=== PATIENT | male | born 1950 | race Caucasian/White ===

== ENCOUNTER 2018-04-11 13:44 | Emergency (ER) | payer OTHER ==
--- NOTE | 2018-04-11 14:41 | PDOC ---
Attending Attestation - Resident Resident Name: Melisa Betancur - ED Attending Attestation I have performed the following: I have examined & evaluated the patient, The case was reviewed & discussed with the resident, I agree w/resident's findings & plan, Exceptions are as noted - Physicial Exam PE: 04/11/18 16:54 Patient is awake and alert, well-appearing, in no distress; patient is initially hypotensive Normocephalic and atraumatic PERRLA, EOMI cta rrr Abdomen is soft, nontender, nondistended, bowel sounds are normal and present in all 4 quadrants - Medical Decision Making 04/11/18 16:55 Patient 67-year-old male with multiple comorbidities who presents with several episodes of loose watery stools intermixed with formed stools. On initial evaluation patient hypotensive. Serial abdominal exams reveal no focal tenderness. Will hydrate. Will check CBC/CMP. We'll administer by mouth challenge and will reassess. <Kareem Henao - Last Filed: 04/11/18 16:53> - HPI HPI: This patient is a 67 year old male with PMHx of, DM, HTN, HLD, CAD s/p CABG, BPD , BPH, C diff 2 year ago , IBS, COPD, Atopic dermatitis PSurgHx:3 right knee, replacement, who presents with diarrhea since last night as well as dizziness today. Patient reports about 5 ep. Of loose stools, with some solid pieces yesterday. He reports 5 ep.of diarrhea this morning. He also reports decrease in appetite since diarrheal episodes, but is currently hungry. He reports dizziness/lightheadedness a few hours ago lasting a few mins. Patient denies abdominal pain, nausea/vomiting, fever/chills. Denies headache, changes in vision, chest pain, SOB, palpitations, urinary symptoms. Social Hx: lives in assisted living <Torie Arboleda - Last Filed: 04/11/18 17:01>
[2018-04-11] MEDS ORDERED: SODIUM CHLORIDE 1,000 ML IV STA (14:59)
--- NOTE | 2018-04-11 15:00 | PDOC ---
History of Present Illness - General Chief Complaint: Diarrhea Stated Complaint: Diarrhea Time Seen by Provider: 04/11/18 14:11 - History of Present Illness Initial Comments: 04/11/18 15:28 Patient is a 67 year old male with past medical history of DM, HTN, HLD, CAD s/ p CABG, Bipolar d/o, COPD, BPH, IBS with diarrhea, Atopic dermatitis, presented with multiple episodes of loose watery stools that started yesterday. Patient reported having 5 episodes of non-bloody loose watery stools last night and 5 more episodes today. A few hours ago, patient experienced dizziness/ lightheadedness, lasting a few minutes. Patient has not had any meal since the diarrheal episodes started, but feels hungry now. Patient denies abdominal pain , nausea/vomiting, fever/chills. Denies headache, changes in vision, chest pain , SOB, palpitations, urinary symptoms. Past History - Travel Traveled outside of the country in the last 30 days: No Close contact w/someone who was outside of country & ill: No - Past Medical History Allergies/Adverse Reactions: Allergies Allergy/AdvReac Type Severity Reaction Status Date / Time No Known Allergies Allergy Verified 04/11/18 16:56 Home Medications: Ambulatory Orders Albuterol Sulfate [Proair Hfa] 1 - 2 puff IH PRN 04/11/18 Aspirin [ASA -] 81 mg PO DAILY 04/11/18 Clopidogrel Bisulfate [Plavix] 75 mg PO DAILY 04/11/18 Cyanocobalamin [Vitamin B12 -] 1,000 mcg PO DAILY 04/11/18 Divalproex *ER* [Depakote *ER* -] 500 mg PO BID 04/11/18 Divalproex Sodium [Depakote] 250 mg PO HS 04/11/18 Famotidine [Pepcid] 20 mg PO DAILY 04/11/18 Folic Acid 1 mg PO DAILY 04/11/18 Gabapentin [Neurontin] 300 mg PO TID 04/11/18 Insulin Glargine,Hum.rec.anlog [Lantus Solostar] 40 unit SQ DAILY 04/11/18 Insulin Lispro [Humalog] 0 unit SQ ASDIR 04/11/18 Ketorolac 0.5% Eye Drop 1 drop OS DAILY 04/11/18 Lactobacillus Acidophilus [Acidophilus] 1 each PO DAILY 04/11/18 Magnesium Chloride [Mag64] 64 mg PO HS 04/11/18 Mirabegron [Myrbetriq] 25 mg PO DAILY 04/11/18 Multivitamins [Tab-A-Vit -] 1 tab PO DAILY 04/11/18 Mupirocin Ointment [Bactroban] 1 applic TP DAILY 04/11/18 Prednisolone Acetate/Pf [Prednisolone Acet 1% Eye Drop] 1 drop OS DAILY Quetiapine Fumarate [Seroquel -] 50 mg PO BID 04/11/18 Quetiapine Fumarate [Seroquel] 100 tab PO HS 04/11/18 Simvastatin 20 mg PO HS 04/11/18 Tamsulosin HCl [Flomax] 0.4 mg PO DAILY 04/11/18 Tranylcypromine Sulfate [Parnate] 30 mg PO BID 04/11/18 metFORMIN HCL [Metformin HCl] 850 mg PO BID 04/11/18 Cardiac Disorders: Yes (ASHD) COPD: Yes Diabetes: Yes HTN: Yes Hypercholesterolemia: Yes Psychiatric Problems: Yes (bipolar disorder) Other medical history: Vitamin deficiency - Suicide/Smoking/Psychosocial Hx Smoking History: Never smoked Abd/GI Specific PMHX - Complaint Specific PMHX Colitis: Yes (C. diff colitis (2016)) Review of Systems - Review of Systems Able to Perform ROS?: Yes Is the patient limited Swedish proficient: No Constitutional: Yes: Other (dizziness/lightheadedness). No: Chills, Fever, Malaise HEENTM: No: Blurred Vision, Double Vision, Nose Pain, Difficulty Swallowing Respiratory: No: Cough, Shortness of Breath Cardiac (ROS): No: Chest Pain, Palpitations ABD/GI: Yes: Diarrhea. No: Abdominal Distended, Blood Streaked Bowels, Constipated, Nausea, Vomiting : No: Burning, Dysuria, Discharge Neurological: No: Headache, Numbness, Tingling, Weakness *Physical Exam - Physical Exam Comments: 04/11/18 15:29 VS: BP 90/60, HR 86, RR 16, O2sat 97% General: awake, alert, oriented x3, not in acute distress Head: no signs of acute trauma HEENT: PERRLA, EOMI, sclerae anicteric, no nasal discharge, dry mucous membranes Neck: supple, trachea midline without LAD Lungs: clear to auscultation bilaterally, no wheezes, rhonchi or crackles Heart: regular rate and rhythm, normal S1/S2, no m,r,g Abdomen: soft, nontender, nondistended, NABS Ext: +2 pulses, no peripheral edema ED Treatment Course - LABORATORY CBC & Chemistry Diagram: 04/11/18 21:20 04/11/18 21:20 Medical Decision Making - Medical Decision Making 04/11/18 14:59 Patient is a 67 year old male with past medical history of DM, HTN, HLD, CAD s/ p CABG, Bipolar d/o, COPD, BPH, IBS with diarrhea, Atopic dermatitis, presented with multiple episodes of loose watery stools that started yesterday. A> Diarrhea ddx include but not limited to gastroenteritis, IBS with diarrhea, C. diff colitis, ischemic colitis Dehydration likely 2/2 diarrhea P> CBC, CMP, Mg, Phos Type and screen IV fluid hydration 04/11/18 16:17 Patient reporting burning epigastric pain Abdominal exam: soft, nontender, nondistended, NABS, no guarding Zantac 150mg Patient able to finish sandwich given to him, and tolerated it well. 04/11/18 17:59 Patient given 1 more sandwich, 3 crackers and an orange juice, all of which he finished. Patient noted to be more alert now. Finishing 1L IV NS bolus Blood pressure still unchanged. *DC/Admit/Observation/Transfer Diagnosis at time of Disposition: Diarrhea with dehydration - Discharge Dispostion Disposition: HOME Condition at time of disposition: Stable Decision to Admit order: No - Referrals Referrals: Chris Bermudez MD [Primary Care Provider] - - Patient Instructions Printed Discharge Instructions: Diarrhea Additional Instructions: Please drink plenty of fluids. Please follow up with your ENT as discussed. Please also follow up with the [employer] Tutor if your diarrhea continues. Please return to the ED with any further concerns or complaints. - Post Discharge Activity
[2018-04-11] MEDS ORDERED: RANITIDINE HCL 150 MG TABLET (FP) PO ONE (16:16)
[2018-04-11] MEDS ORDERED: RANITIDINE HCL 150 MG TABLET (FP) ONE (16:33)
[2018-04-11 16:48] VITALS: BMI 24.4
[2018-04-11 17:52] LABS: BASO % 0.8 % (0-2.0); HEMATOCRIT 34.5 % (35.4-49); HEMOGLOBIN 11.8 GM/dL (11.7-16.9); LYMPH % 7.7 % (8-40); MCH 29.6 pg (25.7-33.7); MCHC 34.2 g/dl (32.0-35.9); MEAN CELL VOLUME 86.5 fl (80-96); MEAN PLT VOLUME 10.4 fl (7.5-11.1); MONO % 9.5 % (3.8-10.2); PLATELET COUNT 220 K/MM3 (134-434); RBC 3.99 M/mm3 (4.00-5.60); WHITE BLOOD COUNT 12.2 K/mm3 (4.0-10.0)
[2018-04-11 18:19] VITALS: BP 105/70; PULSE 86; TEMP 98.3
--- NOTE | 2018-04-11 18:43 | PDOC ---
*Physical Exam - Vital Signs Last Vital Signs Temp Pulse Resp BP Pulse Ox 98.3 F 86 18 105/70 97 04/11/18 18:19 04/11/18 18:19 04/11/18 18:19 04/11/18 18:19 04/11/18 18:19 - Physical Exam Comments: 04/11/18 18:55 Gen: aaox3, nad heart: +s1s2 reg lungs:cta b/l abd: soft, nt/nd +bs ext: no c/c/e ED Treatment Course - LABORATORY CBC & Chemistry Diagram: 04/11/18 21:20 04/11/18 21:20 - ADDITIONAL ORDERS Additional order review: Laboratory Results 04/11/18 04/11/18 04/11/18 15:25 15:25 15:25 Sodium Cancelled Potassium Cancelled Chloride Cancelled Carbon Dioxide Cancelled Anion Gap Cancelled BUN Cancelled Creatinine Cancelled Creat Clearance w eGFR Cancelled Random Glucose Cancelled Calcium Cancelled Magnesium Cancelled Total Bilirubin Cancelled AST Cancelled ALT Cancelled Alkaline Phosphatase Cancelled Total Protein Cancelled Albumin Cancelled Phospholipids Cancelled Blood Type A POSITIVE Antibody Screen Negative 04/11/18 15:25 RBC 3.99 L MCV 86.5 MCHC 34.2 RDW 16.0 H MPV 10.4 Neutrophils % 80.0 Lymphocytes % 7.7 L Monocytes % 9.5 Eosinophils % 2.0 Basophils % 0.8 - Medications Given in the ED: ED Medications Discontinued Medications Generic Name Dose Route Start Last Admin Trade Name Freq PRN Reason Stop Dose Admin Sodium Chloride 1,000 mls @ 1,000 mls/hr 04/11/18 14:59 04/11/18 15:27 Normal Saline - IV 04/11/18 15:58 1,000 mls/hr ASDIR STA Administration Ranitidine HCl 150 mg 04/11/18 16:16 04/11/18 16:39 Zantac - PO 04/11/18 16:17 150 mg ONCE ONE Administration Medical Decision Making - Medical Decision Making 04/11/18 18:42 a/p: 67yo male with diarrhea -signed out from the previous attending pending labs and repeat vitals 04/11/18 18:43 mildly elevated wbc bp improved 04/11/18 18:55 Pt denies abd pain pt states feeling better and has tolerated 2 turkey sandwiches and a full dinner without having diarrhea pt with low magnesium on labs will replace mag and then repeat labs will continue to monitor and reassess 04/11/18 21:24 repeat labs sent magnesium complete 04/11/18 22:00 wbc improved 04/11/18 22:21 magnesium improved stable for dc to home has not had a bm in the ED pt with septal defect in his nose and feels his diarrhea is from the rhinorrhea and dryness of his nose *DC/Admit/Observation/Transfer Diagnosis at time of Disposition: Diarrhea with dehydration - Discharge Dispostion Disposition: HOME Condition at time of disposition: Stable Decision to Admit order: No - Referrals Referrals: Chris Bermudez MD [Primary Care Provider] - - Patient Instructions Printed Discharge Instructions: Diarrhea Additional Instructions: Please drink plenty of fluids. Please follow up with your ENT as discussed. Please also follow up with the General Office Assistant if your diarrhea continues. Please return to the ED with any further concerns or complaints. - Post Discharge Activity
[2018-04-11 18:46] LABS: ALBUMIN 2.2 g/dl (3.4-5.0); ALK PHOS 299 U/L (45-117); ANION GAP 7 MMOL/L (8-16); BILIRUBIN,TOTAL 2.4 mg/dL (0.2-1); BLOOD UREA NITROGEN 15 mg/dL (7-18); CHLORIDE 114 mmol/L (98-107); CO2 22 mmol/L (21-32); GLUCOSE,RANDOM 153 mg/dL (74-106); MAGNESIUM 1.2 mg/dL (1.8-2.4); PHOSPHOROUS 2.7 mg/dL (2.5-4.9); POTASSIUM 4.2 mmol/L (3.5-5.1); SGOT/AST 39 U/L (15-37); SGPT/ALT 31 U/L (13-61); SODIUM 144 mmol/L (136-145); TOT PROT 5.5 g/dl (6.4-8.2)
[2018-04-11 18:48] LABS: CALCIUM 6.9 mg/dL (8.5-10.1)
[2018-04-11] MEDS ORDERED: FAMOTIDINE 20 MG/50 ML IVPB 20 MG/50 ML MG IVPB ONE ×2 (18:52→19:39)
[2018-04-11] MEDS ORDERED: MAGNESIUM SULF 50% (8.12 MEQ/2 ML-1 GM VIAL) IVPB ONE (18:52)
[2018-04-11] MEDS ORDERED: MAG HYDROX/AL HYDROX/SIMETH 30 ML UNIT-DOSE CUP PO ONE (18:52)
[2018-04-11] MEDS ORDERED: MAGNESIUM SULF 50% (8.12 MEQ/2 ML-1 GM VIAL) ONE (19:38)
[2018-04-11] MEDS ORDERED: MAG HYDROX/AL HYDROX/SIMETH 30 ML UNIT-DOSE CUP ONE (19:38)
[2018-04-11 21:48] LABS: BASO % 0.5 % (0-2.0); EOS % 2.5 % (0-4.5); HEMATOCRIT 33.9 % (35.4-49); HEMOGLOBIN 11.5 GM/dL (11.7-16.9); LYMPH % 15.8 % (8-40); MCH 29.7 pg (25.7-33.7); MCHC 33.9 g/dl (32.0-35.9); MEAN CELL VOLUME 87.5 fl (80-96); MEAN PLT VOLUME 9.9 fl (7.5-11.1); MONO % 9.4 % (3.8-10.2); NEUT % 71.8 % (42.8-82.8); PLATELET COUNT 190 K/MM3 (134-434); RBC 3.87 M/mm3 (4.00-5.60); RDW 15.5 % (11.9-15.9); WHITE BLOOD COUNT 7.8 K/mm3 (4.0-10.0)
[2018-04-11 22:05] LABS: ALBUMIN 2.7 g/dl (3.4-5.0); ALK PHOS 376 U/L (45-117); ANION GAP 8 MMOL/L (8-16); BLOOD UREA NITROGEN 17 mg/dL (7-18); CALCIUM 7.9 mg/dL (8.5-10.1); CHLORIDE 107 mmol/L (98-107); CO2 23 mmol/L (21-32); CREATININE 1.1 mg/dL (0.55-1.3); GLUCOSE,RANDOM 256 mg/dL (74-106); SGOT/AST 45 U/L (15-37); SGPT/ALT 36 U/L (13-61); SODIUM 138 mmol/L (136-145); TOT PROT 6.9 g/dl (6.4-8.2)
== END 2018-04-12 01:44 | disposition home or self-care (01) ==
LOC: JER 13:44
PROC: 3E033GC Introduction of Other Therapeutic Substance into Peripheral Vein, Percutaneous Approach (ICD-10-PCS; principal; 2018-04-11)
PROC: 3E0337Z Introduction of Electrolytic and Water Balance Substance into Peripheral Vein, Percutaneous Approach (ICD-10-PCS; 2018-04-11)
DX: E86.0 Dehydration (principal); R19.7 Diarrhea, unspecified; E11.9 Type 2 diabetes mellitus without complications; I10 Essential (primary) hypertension; I25.10 Atherosclerotic heart disease of native coronary artery without angina pectoris; F31.9 Bipolar disorder, unspecified; K58.9 Irritable bowel syndrome, unspecified; L30.9 Dermatitis, unspecified; E78.00 Pure hypercholesterolemia, unspecified
CPT/HCPCS: 36415; 80053; 83735; 84100; 85025; 86850; 86900; 86901; 96361; 96365; 96375; 99282-25; J7030